=== PATIENT | female | born 1950 | race Caucasian/White ===

== ENCOUNTER 2021-08-07 11:07 | Day surgery (SDC) | payer OTHER, SELFPAY ==
[~2021-08-07] VITALS: Ht 152.4 cm; Wt 68.9 kg
[2021-08-07] MEDS ORDERED: MIDAZOLAM HCL 5 MG/5 ML VIAL ONE (13:45)
[2021-08-07] MEDS ORDERED: MEPERIDINE 100 MG INJ. 100 MG/ML VIAL ONE (13:46)
[2021-08-07] MEDS ORDERED: ACETAMINOPHEN 500 MG TABLET PO ONE (16:00)
[2021-08-07] MEDS ORDERED: ACETAMINOPHEN 500 MG TABLET ONE (16:37)
[2021-08-07 17:10] VITALS: BP_SYST 100
== END 2021-08-07 17:12 | disposition home or self-care (01) ==
LOC: UNDOADMOB 11:07 → SMU 11:07 → SDS 11:07 → INTOOBSV 11:07 → EDSTATUS 12:45 → SDS 17:12 → UNDODISOB 17:12
PROVIDERS: ATTEND Dentist General Practice
DX: M27.2 Inflammatory conditions of jaws (principal); M06.9 Rheumatoid arthritis, unspecified; J43.8 Other emphysema; Z20.822 Contact with and (suspected) exposure to COVID-19; R65.10 Systemic inflammatory response syndrome (SIRS) of non-infectious origin without acute organ dysfunction; Z79.899 Other long term (current) drug therapy
CPT/HCPCS: 21215; 21249; 36415; 70140; 87426; C1713 ×2; J2250; G0378; J2175

== ENCOUNTER 2021-11-14 07:21 | Day surgery (SDC) | payer OTHER ==
[~2021-11-14] VITALS: Ht 152.4 cm; Wt 69.9 kg
[2021-11-14] MEDS ORDERED: NS IRRIG SOLN 1000 ML IR ONE (09:00)
[2021-11-14] MEDS ORDERED: BENZOCAINE 20% GEL 32 GM BOTTLE MM ONE (09:00)
[2021-11-14] MEDS ORDERED: NS 100 ML BAG ONE (09:00)
[2021-11-14] MEDS ORDERED: ARTICAINE HCL/EPINEPHRINE 4%/1:200,000 BIT 1.7 ML CARTRIDGE IJ ONE (09:00)
[2021-11-14 11:35] VITALS: BP_SYST 98
== END 2021-11-14 11:35 | disposition home or self-care (01) ==
LOC: SDS 07:21 → SMU 08:03 → SDS 11:35
PROVIDERS: ATTEND Dentist General Practice
DX: M27.2 Inflammatory conditions of jaws (principal); K05.6 Periodontal disease, unspecified; Q85.00 Neurofibromatosis, unspecified; M06.9 Rheumatoid arthritis, unspecified; J43.8 Other emphysema; F17.210 Nicotine dependence, cigarettes, uncomplicated; M26.603 Bilateral temporomandibular joint disorder, unspecified; K05.223 Aggressive periodontitis, generalized, severe; E78.5 Hyperlipidemia, unspecified; F32.9 Major depressive disorder, single episode, unspecified; G89.29 Other chronic pain; I11.0 Hypertensive heart disease with heart failure; I50.9 Heart failure, unspecified; G50.1 Atypical facial pain; R63.4 Abnormal weight loss; Z79.899 Other long term (current) drug therapy; Z20.822 Contact with and (suspected) exposure to COVID-19
CPT/HCPCS: 21025; 21215; 21248; 36415; 70140; 87426; C1713